=== PATIENT | male | born 1990 | race African-American/Black ===

== ENCOUNTER 2022-08-29 00:17 | Emergency (ER) | payer MEDICAID ==
[~2022-08-29] VITALS: Ht 180.3 cm; Wt 82.0 kg
[2022-08-29 00:30] VITALS: BP 113/74
[2022-08-29] MEDS ORDERED: SODIUM CHLORIDE 0.9% 1,000 ML IV ONE (01:00)
[2022-08-29 01:12] LABS: BASOPHILS % 0.2 % (0.0-2.0); EOSINOPHILS % 3.5 % (0.0-5.0); HEMATOCRIT. 37.6 % (42.0-52.0); HEMOGLOBIN. 12.5 g/dL (14.0-18.0); LYMPHOCYTES % 51.5 % (20.0-50.0); MEAN CORPUSCULAR HEMOGLOBIN 31.1 pg (28.0-32.0); MEAN CORPUSCULAR VOLUME 93.7 fL (80.0-94.0); MEAN PLATELET VOLUME 7.8 fl (7.4-10.4); MONOCYTES % 6.3 % (2.0-8.0); NEUTROPHILS % 38.5 % (40.0-76.0); PLATELET 191 x1000/uL (130-400); RED BLOOD CELL COUNT 4.01 mill/uL (4.7-6.1)
[2022-08-29 01:23] LABS: CHLORIDE 111 mEq/L (98-107)
[2022-08-29 01:30] LABS: ETHANOL BLOOD 137 mg/dL (-10)
[2022-08-29 04:51] LABS: *AMPHETAMINES SCREEN URINE NEGATIVE (NEGATIVE); *BARBITURATES SCREEN URINE NEGATIVE (NEGATIVE); *BENZODIAZEPINES SCREEN URINE NEGATIVE (NEGATIVE); *COCAINE SCREEN URINE NEGATIVE (NEGATIVE); CANNABINOID URINE SCREEN NEGATIVE (NEGATIVE); METHADONE URINE SCREEN NEGATIVE (NEGATIVE); OPIATES URINE SCREEN NEGATIVE (NEGATIVE); PHENCYCLIDINE URINE SCREEN NEGATIVE (NEGATIVE)
== END 2022-08-29 08:01 | disposition home or self-care (01) ==
LOC: ER 01:05
DX: F10.129 Alcohol abuse with intoxication, unspecified (principal); Y90.6 Blood alcohol level of 120-199 mg/100 ml; F12.10 Cannabis abuse, uncomplicated
CPT/HCPCS: 36415; 80053; 80305; 80320; 85025; 96360; 96361; 99283; J7030; Z7610; G0480

== ENCOUNTER 2024-03-21 07:19 | Emergency (ER) | payer MEDICAID ==
[~2024-03-21] VITALS: Ht 188 cm; Wt 97.5 kg
[~2024-03-21 07:19] MED LIST: IMIQ1CRE22 TP
[2024-03-21 07:21] VITALS: O2SAT 99
[2024-03-21 07:35] VITALS: BP 127/89; PULSE 70; RESP 16; TEMP 98.1; O2SAT 99
[2024-03-21] MEDS ORDERED: AMOX1TAB16 MT (09:30)
[2024-03-21] MEDS: TETANUS, DIPHTHERIA, PERTUSSIS VAC/PF 0.5ML (>10YR OLD) IM ONE (10:12)
== END 2024-03-21 10:20 | disposition home or self-care (01) ==
LOC: ER 07:29
DX: S61.052A Open bite of left thumb without damage to nail, initial encounter (principal); F41.9 Anxiety disorder, unspecified; F12.90 Cannabis use, unspecified, uncomplicated; Z98.890 Other specified postprocedural states; W53.11XA Bitten by rat, initial encounter; Y93.89 Activity, other specified; Y92.89 Other specified places as the place of occurrence of the external cause; Y99.8 Other external cause status
CPT/HCPCS: 90715; 90471; 99283; Z7610